=== PATIENT | male | born 1980 | race Asian ===

== ENCOUNTER 2020-04-26 19:17 | Emergency (ER) | payer MEDICAID ==
[~2020-04-26] VITALS: Ht 175.3 cm; Wt 77.1 kg
[2020-04-26 19:28] VITALS: Ht 175.3 cm; Wt 77.1 kg
[2020-04-26 20:58] VITALS: BP 139/90
== END 2020-04-26 20:58 | disposition home or self-care (01) ==
LOC: ED 19:17
DX: S91.312A Laceration without foreign body, left foot, initial encounter (principal); W20.8XXA Other cause of strike by thrown, projected or falling object, initial encounter; Y93.89 Activity, other specified; Y92.89 Other specified places as the place of occurrence of the external cause; Y99.8 Other external cause status
CPT/HCPCS: J2001